=== PATIENT | male | born 1975 | race Caucasian/White ===

== ENCOUNTER 2017-11-20 15:11 | Emergency (ER) | payer OTHER ==
[~2017-11-20] VITALS: Ht 172.7 cm; Wt 70.0 kg
[~2017-11-20 15:11] MED LIST: DEPAKOTE; VISTARIL
[2017-11-20 15:20] VITALS: BP 114/61
== END 2017-11-20 17:44 | disposition left against medical advice (07) ==
LOC: ER 16:40
DX: F10.129 Alcohol abuse with intoxication, unspecified (principal); Z53.21 Procedure and treatment not carried out due to patient leaving prior to being seen by health care provider